=== PATIENT | female | born 1975 | race Caucasian/White ===

== ENCOUNTER → 2016-09-04 | Outpatient (CLI) | payer BC, OTHER ==
--- NOTE | 2016-09-04 09:44 | US ---
EXAMINATION TYPE: US abdomen complete DATE OF EXAM: 09/04/2016 COMPARISON: Limited abdominal ultrasound December 22, 2009 CLINICAL HISTORY: Cholecystitis K81.9. vomiting, loss of appetite EXAM MEASUREMENTS: Liver Length: 12.9 cm Gallbladder Wall: 0.2 cm CBD: 0.3 cm Spleen: 10.7 cm Right Kidney: 11.4 x 4.0 x 5.1 cm Left Kidney: 10.6 x 5.6 x 5.0 cm Pancreas: hypoechoic area measures 2.2 x 0.8 x 3.0 located posterior head area, no peristalsing note d, possible mass Liver: wnl Gallbladder: No stones seen Evidence for sonographic Stephens's sign: No CBD: wnl Spleen: wnl Right Kidney: No hydronephrosis or masses seen Left Kidney: No hydronephrosis or masses seen Upper IVC: wnl Abd Aorta: wnl The liver is homogenous. The intrahepatic portion of the IVC and visualized abdominal aorta are with in normal limits. There is no evidence of cholelithiasis. Common bile duct is unremarkable. The vi sualized portions of the pancreas are homogenous. Near pancreatic head there is oval heterogeneous hy poechoic area likely external to pancreatic head favoring debris-filled duodenum or prominent hepatic lobule. True pancreatic parenchymal mass would suspect to have obstructive ductal dilatation. No kelly nge during real-time scanning however is noted by technologist. The spleen is unremarkable. Kidneys are symmetric and free of hydronephrosis. No renal lesions are seen. IMPRESSION: No significant finding is seen to account for patient's symptoms. Cannot entirely exclude peripancreatic head or groove mass such as abnormal adenopathy. Advise multiphasic contrast-enhanced CT correlation.
== END | disposition home or self-care (01) ==
LOC: RADUSWWP 08:52
PROVIDERS: ATTEND Family Medicine
DX: K81.9 Cholecystitis, unspecified (principal)
CPT/HCPCS: 76700

== ENCOUNTER → 2016-09-12 | Outpatient (CLI) | payer BC, OTHER ==
--- NOTE | 2016-09-12 07:56 | CT ---
EXAMINATION TYPE: CT abdomen w con DATE OF EXAM: 09/12/2016 REFERENCE: NONE HISTORY: R93.5 abn findings on diagnostic imaging HISTORY: Abn findings on diagnostic imaging REFERENCE: NONE CT DLP: 615 mGy Automated exposure control for dose reduction was used. TECHNIQUE: Helical acquisition through the abdomen and pelvis was obtained following the oral ingesti on of with Oral Contrast and following intravenous administration of 100 ml mL of Omnipaque 300. The data was reformatted in axial, coronal and sagittal projections. FINDINGS: Visualized portions of the lungs are clear. There is no pleural or pericardial fluid. The heart is not enlarged. There is a small hiatal hernia. Within the abdomen, the liver, spleen and gallbladder are normal. Both adrenal glands are normal. Both kidneys demonstrate function and appear morphologically normal. The pancreas is unremarkable. There is minimal atheromatous calcification of the aorta. There is no significant retroperitoneal gm nopathy. Visualized bowel loops appear unremarkable. No free fluid and no free air is seen. No bony destructive lesion is identified. IMPRESSION: 1. SMALL HIATAL HERNIA. 2. NO ACUTE INFLAMMATORY ABNORMALITY OR DEFINITE VISCERAL ABNORMALITY.
== END | disposition home or self-care (01) ==
LOC: RADCTMAIN 07:03
PROVIDERS: ATTEND Family Medicine
DX: K44.9 Diaphragmatic hernia without obstruction or gangrene (principal)
CPT/HCPCS: 74160; Q9967

== ENCOUNTER 2016-12-12 08:00 | Day surgery (SDC) | payer BC, OTHER ==
[2016-12-10 12:01] VITALS: BMI 20.9
[~2016-12-12 08:00] MED LIST: LACTATED RINGERS 1,000 ML IV SCH; LIDOCAINE 1% 20 ML VIAL (10MG/ML) FOR IV START INTRADERMA PRN
[2016-12-12] MEDS ORDERED: LACTATED RINGERS 1,000 ML IV ONE (08:07)
[2016-12-12] MEDS ORDERED: PROPOFOL 10 MG/ML 20 ML VIAL IV ONE (08:27)
[2016-12-12] MEDS ORDERED: GLYCOPYRROLATE 0.2 MG/ML 2 ML VIAL ONE (08:27)
[2016-12-12] MEDS ORDERED: LIDOCAINE 1% INJ 10MG/ML (20 ML MDV) ONE (08:27)
--- NOTE | 2016-12-12 08:29 | P.GSHP ---
History of Present Illness H&P Date: 12/12/16 Chief Complaint: Abdominal pain Patient here today for upper endoscopy. She recent CAT scan of the abdomen and pelvis that was normal. She had an ultrasound of the abdomen showing no definite gallbladder abnormalities. She was seen in the office and started on a trial of antiacids without improvement in her symptoms. He was then scheduled for an upper endoscopy and a HIDA scan. Past Medical History Past Medical History: GERD/Reflux Additional Past Medical History / Comment(s): SEASONAL ALLERGIES, SHINGLES (2017 ), OCCASIONAL NAUSEA AND VOMITING History of Any Multi-Drug Resistant Organisms: None Reported Additional Past Surgical History / Comment(s): BUNIONECTOMY (13YRS OLD), Past Anesthesia/Blood Transfusion Reactions: No Reported Reaction Additional Past Anesthesia/Blood Transfusion Reaction / Comment(s): EPIDURAL WITH OF CHILD AND BLOODPRESSURE SPIKED. Past Psychological History: No Psychological Hx Reported Smoking Status: Never smoker Past Alcohol Use History: None Reported Past Drug Use History: None Reported - Past Family History Mother Family Medical History: No Reported History Medications and Allergies Home Medications Medication Instructions Recorded Confirmed Type Cetirizine HCl [Zyrtec] 10 mg PO HS 01/09/16 12/10/16 History Ibuprofen [Motrin] 400 - 600 mg PO ONCE PRN 12/10/16 12/10/16 History Lactobacillus Acidophilus 1 each PO DAILY 12/10/16 12/10/16 History [Acidophilus] Lysine 500 mg PO DAILY 12/10/16 12/10/16 History Omeprazole [PriLOSEC] 20 mg PO AC-BRKFST 12/10/16 12/10/16 History Allergies Allergy/AdvReac Type Severity Reaction Status Date / Time No Known Allergies Allergy Verified 12/10/16 11:39 Surgical - Exam Vital Signs Pulse Resp BP Pulse Ox 75 16 162/89 98 12/12/16 08:20 12/12/16 08:20 12/12/16 08:20 12/12/16 08:20 Physical exam: General: Well-developed, well-nourished HEENT: Normocephalic, sclerae nonicteric Abdomen: Nontender, nondistended Extremities: No edema Neuro: Alert and oriented Assessment and Plan (1) Abdominal pain Narrative/Plan: Will proceed with upper endoscopy at this time. Current Visit: Yes Status: Acute Code(s): R10.9 - UNSPECIFIED ABDOMINAL PAIN SNOMED Code(s): 46680476
--- NOTE | 2016-12-12 08:38 | P.PCN ---
Date of Procedure: 12/12/16 Procedure(s) Performed: Preoperative Dx: Abdominal pain/nausea Postoperative Dx: Gastritis Procedure: EGD with Bx Anesthesia: Sedation Endoscopist: Dr. Gonzales Specimens: And Endoscopic Procedure: The patient was on the endoscopy table in the left decubitus position. The Olympus gastroscope was inserted into the oropharynx and passed under direct visualization to the region of the third portion of the duodenum. From that point the scope was slowly withdrawn inspecting all surfaces carefully. There were no neoplastic inflammatory or polypoid lesions throughout the duodenum. The pylorus was widely patent. The stomach was carefully inspected. There was diffuse gastritis present. No ulcerations were seen. A biopsy of the antrum took place to rule out H. pylori. Retroflexion revealed a normal hiatus. The esophagus was then carefully examined. There were no neoplastic inflammatory or polypoid lesions throughout the visualized esophagus. The patient was then taken to the recovery room in stable condition per anesthesia guidelines. Recommendations: Await biopsy results. Will add Carafate. Await HIDA scan results.
[2016-12-12 09:04] VITALS: BP 140/80; PULSE 84; RESP 18
== END 2016-12-12 09:35 | disposition home or self-care (01) ==
LOC: ORWHC2ENDO 08:00
PROVIDERS: ATTEND Surgery
DX: K29.50 Unspecified chronic gastritis without bleeding (principal); K21.9 Gastro-esophageal reflux disease without esophagitis; J30.2 Other seasonal allergic rhinitis; Z79.1 Long term (current) use of non-steroidal anti-inflammatories (NSAID); Z79.899 Other long term (current) drug therapy
CPT/HCPCS: 81025; 88305; 88342; 43239; J2001; J2704

== ENCOUNTER 2019-04-06 00:32 | Emergency (ER) | payer BC ==
[2019-04-06 00:49] VITALS: RESP 18
[2019-04-06] MEDS ORDERED: NITROGLYCERIN SL TABS 0.4 MG TAB SUBLINGUAL STA (00:51)
[2019-04-06] MEDS ORDERED: SODIUM CHLORIDE 0.9% 500 ML 500 ML IV STA (00:51)
[2019-04-06] MEDS ORDERED: ASPIRIN 81 MG PO STA (00:51)
[2019-04-06 01:19] LABS: Basophils # (A) 0.1 k/uL (0-0.2); Basophils % (A) 1 %; Eosinophils # (A) 0.2 k/uL (0-0.7); Eosinophils % (A) 4 %; HCT 41.4 % (34.0-46.0); Lymphocytes # (A) 1.1 k/uL (1.0-4.8); Lymphocytes % (A) 28 %; MCH 30.8 pg (25.0-35.0); MCHC 33.9 g/dL (31.0-37.0); MCV 90.8 fL (80.0-100.0); Mean Platelet Volume 8.5; Monocytes # (A) 0.3 k/uL (0-1.0); Monocytes % (A) 7 %; Neutrophils # (A) 2.4 k/uL (1.3-7.7); Neutrophils % (A) 58 %; Platelet Count 240 k/uL (150-450); RBC 4.56 m/uL (3.80-5.40); RDW 12.9 % (11.5-15.5); WBC 4.1 k/uL (3.8-10.6)
[2019-04-06 01:31] LABS: ALT 24 U/L (4-34); AST 26 U/L (14-36); African American GFR (CKD) >90 (>60 ml/min/1.73 sqM); Albumin 4.2 g/dL (3.5-5.0); Alkaline Phosphatase 88 U/L (38-126); Anion Gap 8 mmol/L; Blood Urea Nitrogen 14 mg/dL (7-17); Carbon Dioxide 24 mmol/L (22-30); Chloride 105 mmol/L (98-107); Glucose 99 mg/dL (74-99); Magnesium 2.2 mg/dL (1.6-2.3); Non-African American GFR(CKD) 80 (>60 ml/min/1.73 sqM); Potassium 3.9 mmol/L (3.5-5.1); Sodium 137 mmol/L (137-145); Total Bilirubin 0.3 mg/dL (0.2-1.3); Total Protein 7.3 g/dL (6.3-8.2)
--- NOTE | 2019-04-06 01:33 | XR ---
EXAMINATION TYPE: XR chest 2V DATE OF EXAM: 04/06/2019 COMPARISON: NONE HISTORY: Chest pain TECHNIQUE: FINDINGS: Heart and mediastinum are normal. Lungs are clear. Diaphragm is normal. Bony thorax appears normal. There are chest leads. IMPRESSION: Normal chest.
[2019-04-06 01:43] LABS: D-Dimer 0.43 mg/L FEU (<0.60); INR 0.9 (<1.2)
--- NOTE | 2019-04-06 01:43 | ED ---
General Adult HPI - General Source: patient Mode of arrival: ambulatory Limitations: no limitations <Pilar Shaffer - Last Filed: 04/06/19 03:33> <Tino Pires - Last Filed: 04/06/19 05:35> - General Chief complaint: Chest Pain Stated complaint: Chest Pain Time Seen by Provider: 04/06/19 00:35 - History of Present Illness Initial comments: 43-year-old female patient presents to the emergency department today for evaluation of left-sided chest pain radiating into her left neck and jaw. Patient states symptoms started about an hour and a half ago. Patient states with that she did have sweating and shortness of breath. Denies any nausea or vomiting. She denies any pain radiating into her back. Patient denies history of similar symptoms. States she has no chronic medical conditions. She does not take any medications other than [id number] supplements. Eyes history of tobacco use. States she does have a family history of coronary artery disease, her father had a quadruple bypass. His first heart attack was in his late 50s. Patient denies any recent rash, fever, chills, abdominal pain, diarrhea, constipation, back pain, numbness, tingling, dizziness, weakness, hematuria, dysuria, urinary urgency, urinary frequency, headache, visual changes, or any other complaints. (Pilar Shaffer) - Related Data Home Medications Medication Instructions Recorded Confirmed Cetirizine HCl [Zyrtec] 10 mg PO HS 01/09/16 12/10/16 Ibuprofen [Motrin] 400 - 600 mg PO ONCE PRN 12/10/16 12/10/16 Lactobacillus Acidophilus 1 each PO DAILY 12/10/16 12/10/16 [Acidophilus] Lysine 500 mg PO DAILY 12/10/16 12/10/16 Omeprazole [PriLOSEC] 20 mg PO AC-BRKFST 12/10/16 12/10/16 Previous Rx's Medication Instructions Recorded Sucralfate [Carafate] 1 gm PO ACHS #120 tab 12/12/16 Allergies Allergy/AdvReac Type Severity Reaction Status Date / Time No Known Allergies Allergy Verified 04/06/19 00:49 Review of Systems ROS Other: All systems not noted in ROS Statement are negative. <Pilar Shaffer - Last Filed: 04/06/19 03:33> ROS Other: All systems not noted in ROS Statement are negative. <Tino Pires - Last Filed: 04/06/19 05:35> ROS Statement: Those systems with pertinent positive or pertinent negative responses have been documented in the HPI. Past Medical History Past Medical History: GERD/Reflux Additional Past Medical History / Comment(s): SEASONAL ALLERGIES, SHINGLES (2017), OCCASIONAL NAUSEA AND VOMITING History of Any Multi-Drug Resistant Organisms: None Reported Additional Past Surgical History / Comment(s): BUNIONECTOMY (13YRS OLD), Past Anesthesia/Blood Transfusion Reactions: No Reported Reaction Additional Past Anesthesia/Blood Transfusion Reaction / Comment(s): EPIDURAL WITH OF CHILD AND BLOODPRESSURE SPIKED. Past Psychological History: No Psychological Hx Reported Smoking Status: Never smoker Past Alcohol Use History: None Reported Past Drug Use History: None Reported - Past Family History Mother Family Medical History: No Reported History <Pilar Shaffer - Last Filed: 04/06/19 03:33> General Exam Limitations: no limitations General appearance: alert, in no apparent distress, other (This is a well- developed, well-nourished, nontoxic-appearing adult female patient in no acute distress. Vital signs upon presentation are temperature 98.0F, pulse 74, respirations 18, blood pressure 187/96, pulse ox 99% on room air.) Eye exam: Present: normal appearance, PERRL, EOMI. Absent: scleral icterus, conjunctival injection, periorbital swelling ENT exam: Present: normal exam, normal oropharynx, mucous membranes moist Respiratory exam: Present: normal lung sounds bilaterally. Absent: respiratory distress, wheezes, rales, rhonchi, stridor Cardiovascular Exam: Present: regular rate, normal rhythm, normal heart sounds. Absent: systolic murmur, diastolic murmur, rubs, gallop, clicks GI/Abdominal exam: Present: soft, normal bowel sounds. Absent: distended, tenderness, guarding, rebound, rigid Neurological exam: Present: alert, oriented X3, CN II-XII intact Psychiatric exam: Present: normal affect, normal mood Skin exam: Present: warm, dry, intact, normal color. 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 ] Respiratory 18 Rate Blood Pressure 153/104 153/104 O2 Sat by Pulse 99 99 Oximetry 04/06/19 04/06/19 04/06/19 02:00 02:10 02:20 Temperature Pulse Rate 75 74 75 Pulse Rate [ Experienced [employer] ] Respiratory Rate Blood Pressure 166/89 147/86 132/93 O2 Sat by Pulse 98 98 98 Oximetry 04/06/19 04/06/19 04/06/19 02:30 02:40 02:50 Temperature Pulse Rate 80 74 72 Pulse Rate [ Experienced [employer] ] Respiratory Rate Blood Pressure 141/86 137/98 129/75 O2 Sat by Pulse 98 97 97 Oximetry 04/06/19 04/06/19 04/06/19 03:00 03:10 03:20 Temperature Pulse Rate 70 77 77 Pulse Rate [ Experienced [employer] ] Respiratory Rate Blood Pressure 136/84 133/84 130/83 O2 Sat by Pulse 97 97 98 Oximetry 04/06/19 04/06/19 04/06/19 03:30 03:40 03:50 Temperature Pulse Rate 74 73 75 Pulse Rate [ Experienced [employer] ] Respiratory Rate Blood Pressure 129/81 128/81 124/82 O2 Sat by Pulse 97 98 97 Oximetry 04/06/19 04/06/19 04/06/19 04:00 04:10 04:30 Temperature Pulse Rate 75 73 68 Pulse Rate [ Experienced [employer] ] Respiratory Rate Blood Pressure 125/84 130/89 140/92 O2 Sat by Pulse 98 98 98 Oximetry 04/06/19 04:50 Temperature 98.1 F Pulse Rate 70 Pulse Rate [ Experienced [employer] ] Respiratory Rate Blood Pressure 131/87 O2 Sat by Pulse 98 Oximetry EKG Findings - EKG Comments: EKG Findings:: EKG obtained at 00 43 shows normal sinus rhythm with a ventricular rate of 74, FL interval 134, QRS duration 82, QT 414, QTC 459. No evidence of ST elevation or depression. <Pilar Shaffer - Last Filed: 04/06/19 03:33> Medical Decision Making - Lab Data Result diagrams: 04/06/19 00:57 04/06/19 00:57 - Radiology Data Radiology results: report reviewed, image reviewed <Pilar Shaffer - Last Filed: 04/06/19 03:33> - Lab Data Result diagrams: 04/06/19 00:57 04/06/19 00:57 <Tino Pires - Last Filed: 04/06/19 05:35> - Medical Decision Making 43-year-old female patient presented to the emergency department today for evaluation of left-sided chest pain, neck pain, jaw pain. She is also reporting shortness of breath and sweats with this. Physical examination is unremarkable. Lungs are clear to auscultation with good air movement. Initial lab results are back and showed no abnormalities. Initial troponin is negative. Chest x- ray shows no acute cardio pulmonary process. EKG shows normal sinus rhythm with no ectopy, ST elevation or depression. I did discuss findings and results with the patient, did recommend admission. Patient does have some family obligations. We will repeat troponin and reevaluate at that time. Care will be handed over to my attending Dr. Pires at 0400. (Pilar Shaffer) - Lab Data Lab Results 04/06/19 04/06/19 04/06/19 Range/Units 00:57 00:57 00:57 WBC 4.1 (3.8-10.6) k/uL RBC 4.56 (3.80-5.40) m/uL Hgb 14.0 (11.4-16.0) gm/dL Hct 41.4 (34.0-46.0) % MCV 90.8 (80.0-100.0) fL MCH 30.8 (25.0-35.0) pg MCHC 33.9 (31.0-37.0) g/dL RDW 12.9 (11.5-15.5) % Plt Count 240 (150-450) k/uL Neutrophils % 58 % Lymphocytes % 28 % Monocytes % 7 % Eosinophils % 4 % Basophils % 1 % Neutrophils # 2.4 (1.3-7.7) k/uL Lymphocytes # 1.1 (1.0-4.8) k/uL Monocytes # 0.3 (0-1.0) k/uL Eosinophils # 0.2 (0-0.7) k/uL Basophils # 0.1 (0-0.2) k/uL PT 9.6 (9.0-12.0) sec INR 0.9 (<1.2) APTT 23.4 (22.0-30.0) sec D-Dimer 0.43 (<0.60) mg/L FEU Sodium 137 (137-145) mmol/L Potassium 3.9 (3.5-5.1) mmol/L Chloride 105 (98-107) mmol/L Carbon Dioxide 24 (22-30) mmol/L Anion Gap 8 mmol/L BUN 14 (7-17) mg/dL Creatinine 0.88 (0.52-1.04) mg/dL Est GFR (CKD-EPI)AfAm >90 (>60 ml/min/1.73 sqM) Est GFR (CKD-EPI)NonAf 80 (>60 ml/min/1.73 sqM) Glucose 99 (74-99) mg/dL Calcium 9.0 (8.4-10.2) mg/dL Magnesium 2.2 (1.6-2.3) mg/dL Total Bilirubin 0.3 (0.2-1.3) mg/dL AST 26 (14-36) U/L ALT 24 (4-34) U/L Alkaline Phosphatase 88 (38-126) U/L Troponin I (0.000-0.034) ng/mL Total Protein 7.3 (6.3-8.2) g/dL Albumin 4.2 (3.5-5.0) g/dL 04/06/19 04/06/19 Range/Units 00:57 04:15 WBC (3.8-10.6) k/uL RBC (3.80-5.40) m/uL Hgb (11.4-16.0) gm/dL Hct (34.0-46.0) % MCV (80.0-100.0) fL MCH (25.0-35.0) pg MCHC (31.0-37.0) g/dL RDW (11.5-15.5) % Plt Count (150-450) k/uL Neutrophils % % Lymphocytes % % Monocytes % % Eosinophils % % Basophils % % Neutrophils # (1.3-7.7) k/uL Lymphocytes # (1.0-4.8) k/uL Monocytes # (0-1.0) k/uL Eosinophils # (0-0.7) k/uL Basophils # (0-0.2) k/uL PT (9.0-12.0) sec INR (<1.2) APTT (22.0-30.0) sec D-Dimer (<0.60) mg/L FEU Sodium (137-145) mmol/L Potassium (3.5-5.1) mmol/L Chloride (98-107) mmol/L Carbon Dioxide (22-30) mmol/L Anion Gap mmol/L BUN (7-17) mg/dL Creatinine (0.52-1.04) mg/dL Est GFR (CKD-EPI)AfAm (>60 ml/min/1.73 sqM) Est GFR (CKD-EPI)NonAf (>60 ml/min/1.73 sqM) Glucose (74-99) mg/dL Calcium (8.4-10.2) mg/dL Magnesium (1.6-2.3) mg/dL Total Bilirubin (0.2-1.3) mg/dL AST (14-36) U/L ALT (4-34) U/L Alkaline Phosphatase (38-126) U/L Troponin I <0.012 <0.012 (0.000-0.034) ng/mL Total Protein (6.3-8.2) g/dL Albumin (3.5-5.0) g/dL - Radiology Data Two-view x-ray of the chest is obtained. Report was reviewed in its entirety. Impression by Dr. Pulido shows normal chest. (Pilar Shaffer) Disposition <Pilar Shaffer - Last Filed: 04/06/19 03:33> Is patient prescribed a controlled substance at d/c from ED?: No <Tino Pires - Last Filed: 04/06/19 05:35> Clinical Impression: Chest pain Disposition: HOME SELF-CARE Condition: Good Instructions (If sedation given, give patient instructions): Chest Pain (ED) Referrals: Alexandra Hobbs MD [Primary Care Provider] - 1-2 days
[2019-04-06 01:44] LABS: Partial Thromboplastin Time 23.4 sec (22.0-30.0); Prothrombin Time 9.6 sec (9.0-12.0)
[2019-04-06 05:47] VITALS: BP 137/87; PULSE 67
[2019-04-06 05:58] VITALS: TEMP 98.2
== END 2019-04-06 05:58 | disposition home or self-care (01) ==
LOC: EC 00:32
DX: R07.9 Chest pain, unspecified (principal); M54.2 Cervicalgia; R68.84 Jaw pain; R06.02 Shortness of breath; L75.0 Bromhidrosis; K21.9 Gastro-esophageal reflux disease without esophagitis; J30.2 Other seasonal allergic rhinitis; Z53.20 Procedure and treatment not carried out because of patient's decision for unspecified reasons; Z79.899 Other long term (current) drug therapy; Z87.891 Personal history of nicotine dependence; Z82.49 Family history of ischemic heart disease and other diseases of the circulatory system
CPT/HCPCS: 36415; 71046; 80053; 83735; 84484; 85025; 85379; 85610; 85730; 93005; 96360; 96361; 99285

== ENCOUNTER → 2020-07-01 | Outpatient (CLI) | payer BC ==
--- NOTE | 2020-07-01 08:45 | US ---
EXAMINATION TYPE: US abdomen complete DATE OF EXAM: 07/01/2020 COMPARISON: CT abdomen September 12, 2016 CLINICAL HISTORY: R11.0 NAUSEA, K21.9 GERD. Epigastric pain, nausea and vomiting x 3 years especially after meals. EXAM MEASUREMENTS: Liver Length: 14.7 cm Gallbladder Wall: 0.2 cm CBD: 0.3 cm Spleen: 9.7 cm Right Kidney: 9.9 x 5.3 x 3.7 cm Left Kidney: 10.4 x 4.5 x 4.7 cm Pancreas: hypoechoic area seen = 2.9 x 3.1 x 0.6 in area of uncinate process of pancreas; this area also seen on prior US 2017 . Suspect prominent but subcentimeter peripancreatic lymph node. Liver: left lobe cystic cluster = 1.4 x 1.1 x 0.7cm and noted anteriorly Gallbladder: wnl Evidence for sonographic Stephens's sign: no CBD: wnl Spleen: wnl Right Kidney: No hydronephrosis or masses seen Left Kidney: No hydronephrosis or masses seen Upper IVC: wnl Abd Aorta: wnl The intrahepatic portion of the IVC and visualized abdominal aorta are within normal limits. There is no evidence of shadowing mobile cholelithiasis. Common bile duct is within normal limits. The sp herbert is unremarkable. Kidneys are symmetric and free of hydronephrosis. No renal lesions are seen o n images saved. IMPRESSION: No new or acute findings are evident
== END | disposition home or self-care (01) ==
LOC: RADUSWWP 07:26
PROVIDERS: ATTEND Family Medicine
DX: K21.9 Gastro-esophageal reflux disease without esophagitis (principal)
CPT/HCPCS: 76700